=== PATIENT | female | born 1950 | race Two or more races ===

== ENCOUNTER → 2024-04-18 | Emergency (ER) | payer OTHER ==
[~2024-04-18] VITALS: Ht 154.9 cm; Wt 80.7 kg
[~2024-04-18] MED LIST: ATIVAN1 M1 PO; LABETALOL HCL100 MG PO; LIPITOR20 MG PO; [UNRECOGNIZED DRUG - OTHER] MC
== END | disposition left against medical advice (07) ==
LOC: ER 05:25
DX: Z53.21 Procedure and treatment not carried out due to patient leaving prior to being seen by health care provider (principal)